=== PATIENT | female | born 1970 | race Hispanic/Latino ===

== ENCOUNTER 2019-09-19 05:50 | Emergency (ER) | payer MEDICAID | END 2019-09-19 06:19 | disposition home or self-care (01) | LOC: ERS 05:50 | DX: B02.9 Zoster without complications (principal); M79.602 Pain in left arm | CPT/HCPCS: 93005 ==

== ENCOUNTER 2021-01-16 19:02 | Emergency (ER) | payer SELFPAY ==
[2021-01-16] MEDS ORDERED: traMADol HCl 50 MG TAB ONE (19:50)
== END 2021-01-16 23:00 | disposition home or self-care (01) ==
LOC: ERS 19:02
DX: S80.02XA Contusion of left knee, initial encounter (principal); W18.11XA Fall from or off toilet without subsequent striking against object, initial encounter; Y92.002 Bathroom of unspecified non-institutional (private) residence as the place of occurrence of the external cause

== ENCOUNTER 2021-03-24 14:58 | Emergency (ER) | payer SELFPAY ==
[2021-03-24 23:32] LABS: SARS-CoV-2 PCR by NAA DETECTED (NotDetected)
== END 2021-03-24 16:02 | disposition home or self-care (01) ==
LOC: ERS 14:58
DX: U07.1 COVID-19 (principal)
CPT/HCPCS: 87804; 99283; U0003; U0005